=== PATIENT | male | born 1950 | race Caucasian/White ===

== ENCOUNTER → 2018-11-07 | Outpatient (CLI) | payer BC ==
[2016-01-21 08:07] VITALS: BP 139/81
[~2018-11-07] MED LIST: ALBU2.5V8 IH; ARIP5TAB13 PO; ATOR10TA60 PO; CARV25TA2 PO; CEFU500T46 PO; DIVA250T PO; DIVA500T4 PO; ESOM40CA PO; FLUT16SP21 NS; FURO20TA3 PO; IPRA3AMP29 NEB; ISOS30TA4 PO; POTA20TA12 PO; POTA20TA82 PO; PRED-220 PO
--- NOTE | 2018-11-07 23:27 | RAD ---
Examination: CT head and sinuses without contrast HISTORY: History of headaches, chronic sinusitis. COMPARISON: None available technique: Axial CT images of the head were performed and contrast axial CT images of the maxillofacial bones were performed without contrast. Coronal and sagittal reformats are performed Exposure: One or more of the following individualized dose reduction techniques were utilized for this examination: 1. Automated exposure control 2. Adjustment of the mA and/or kV according to patient size 3. Use of iterative reconstruction technique FINDINGS: There is no evidence of midline shift. There is no acute intracranial bleed or extra-axial fluid collection identified. The mojica-white matter differentiation is maintained. The visualized lateral ventricles, third ventricle, fourth ventricles are appropriate for age. The basal cisterns are uneffaced. Mild bilateral periventricular white matter hypodensities likely chronic small vessel ischemic disease. Mild mucosal thickening identified in the bilateral ethmoidal sinuses. Surgical changes identified in the bilateral maxillary sinus region. The mastoid air cells are clear The visualized right sphenoid sinus and the maxillary sinuses are clear. Mild mucosal thickening left sphenoid sinus The bilateral orbital globes appear intact. Orbital fat is maintained. IMPRESSION: 1. No acute intracranial findings. 2. Mild sinus disease bilateral ethmoidal sinus and left sphenoid sinus. Electronically signed by: Tony García MD (11/07/2018 3:56 PM) [place] [id number]
== END | disposition home or self-care (01) ==
LOC: CT 15:02
PROVIDERS: ATTEND Physician Assistant
DX: J01.01 Acute recurrent maxillary sinusitis (principal); J32.2 Chronic ethmoidal sinusitis; J32.3 Chronic sphenoidal sinusitis; I10 Essential (primary) hypertension; F41.9 Anxiety disorder, unspecified; Z88.8 Allergy status to other drugs, medicaments and biological substances
CPT/HCPCS: 70450; 70486

== ENCOUNTER → 2019-01-17 | Outpatient (CLI) | payer BC ==
[2016-01-21 08:07] VITALS: BP 139/81
[~2019-01-17] MED LIST changes: +IOHEXOL 240 MG/ML 50ML VIAL. PO ONE; +IOHEXOL 300 MG/ML 75 ML VIAL. IV ONE
[2019-01-17 11:26] LABS: ALBUMIN 3.8 g/dL (3.4-5.0); CALCIUM 9.4 mg/dL (8.5-10.1); CREATININE 1.2 mg/dL (0.7-1.3); GFR 60.2; POTASSIUM 4.5 mmol/L (3.5-5.1); TOTAL PROTEIN 7.5 g/dL (6.4-8.2)
--- NOTE | 2019-01-17 12:49 | RAD ---
CT ABD PELV W/ORAL IV CONTRAST Indication: Left-sided abdominal pain and nausea for 5 days Technique: Postcontrast CT imaging was performed of the abdomen pelvis, multiplanar reconstruction images submitted. Oral contrast was also given. One or more of the following individualized dose reduction techniques were utilized for this examination: 1. Automated exposure control 2. Adjustment of the mA and/or kV according to patient size 3. Use of iterative reconstruction technique. Comparison: None Findings: There is no abnormality of the limited visualized lung bases. No focal abnormality is identified of the liver, spleen, pancreas. There is cholelithiasis. Both kidneys enhance, no hydronephrosis. There is no adrenal nodularity. Bowel is not significantly dilated. There is no free fluid or free air. There is mild relative wall thickening of the transverse colon and of the proximal to mid sigmoid colon and probably minimally of the descending colon. There is no appreciable small bowel wall thickening. Normal appendix is visualized. There is circumferential prominence of urinary bladder keyes. There is fairly advanced degenerative disc disease with vacuum phenomenon at L4-5 and L5-S1, also multilevel lumbar spondylosis. Incidental note is made of circumaortic left renal vein. There is mild prostatomegaly. IMPRESSION: 1. There is mild, long segment colonic wall thickening, evidence of mild colitis. There is no CT evidence of acute appendicitis. 2. There is cholelithiasis. 3. There is circumferential prominence of urinary bladder keyes, could be due to incomplete distention due to chronic urinary outlet obstruction unless there is suspicion for cystitis. There is mild prostatomegaly. Electronically signed by: Les Fernandez MD (01/17/2019 12:46 PM) [id number]
== END | disposition home or self-care (01) ==
LOC: CT 10:42
PROVIDERS: ATTEND Nurse Practitioner Family
DX: K52.89 Other specified noninfective gastroenteritis and colitis (principal); K80.20 Calculus of gallbladder without cholecystitis without obstruction; N40.0 Benign prostatic hyperplasia without lower urinary tract symptoms; M51.37 Other intervertebral disc degeneration, lumbosacral region; M47.816 Spondylosis without myelopathy or radiculopathy, lumbar region
CPT/HCPCS: 36415; 74177; 80053; Q9966; Q9967